=== PATIENT | male | born 1995 | race Caucasian/White ===

== ENCOUNTER 2017-02-12 23:08 | Emergency (ER) | payer OTHER ==
--- NOTE | ~2017-02-12 | CR20 ---
[facility]. [facility] A Service of [facility] & [facility] RADIOLOGY TEXT RESULTS PATIENT: GEMMA SEBASTIAN LOCATION: SED : [birth year] UNIT #: [id number] AGE: [address]: FELISHA TELLO SEX: M ORDER DR: [id number] [place] [address] [id number] E MR#: [id number] Acc #: [id number] NAME: GEMMA SEBASTIAN. : 1995 SEX: M STUDY DATE/TIME: 02/13/2017 1:20 UNIT: SED ROOM: STUDY DESCRIPTION: CR Ankle Min 3 Views Lt Attending Physician: Felisha Tello Aprn Ordering Physician: Felisha Tello Aprn Primary Care Physician: Maru Terry M.D. MEDICAL IMAGING REPORT This report is preliminary unless electronic signature is present. EXAM Left ankle INDICATIONS Left ankle pain after stepping in hole at work yesterday. FINDINGS AP, lateral, and oblique projections of the ankle show satisfactory integrity of the joint mortise with a smooth articular surface. There is no identifiable fracture, dislocation, or radiopaque foreign body. IMPRESSION Normal ankle. Dictated by... Azeem Lopez M.D. THIS IS AN ELECTRONICALLY VERIFIED REPORT Azeem Lopez M.D. at 02/13/2017 3:37 AM FEL/marita TD: 02/13/2017 03:11 JOB #: [id number] MEDICAL IMAGING REPORT Page 1 of 1
--- NOTE | ~2017-02-12 | CR126 ---
[facility]. [facility] A Service of [facility] & [facility] RADIOLOGY TEXT RESULTS PATIENT: GEMMA SEBASTIAN LOCATION: SED : [birth year] UNIT #: [id number] AGE: [address]: FELISHA TELLO SEX: M ORDER DR: [id number] [place] [address] [id number] E MR#: [id number] Acc #: [id number] NAME: GEMMA SEBASTIAN. : 1995 SEX: M STUDY DATE/TIME: 02/13/2017 1:20 UNIT: SED ROOM: STUDY DESCRIPTION: CR Foot Complete Min 3 View Lt Attending Physician: Felisha Tello Aprn Ordering Physician: Felisha Tello Aprn Primary Care Physician: Maru Terry M.D. MEDICAL IMAGING REPORT This report is preliminary unless electronic signature is present. EXAM Left foot INDICATION Left foot pain after stepping in a hole at work. This happened yesterday. FINDINGS The tarsal, metatarsal, and phalangeal elements are all anatomically normal in position and alignment. There are no articular defects. No fractures or radiopaque foreign bodies in the soft tissues are apparent. IMPRESSION Normal foot. Dictated by... Azeem Lopez M.D. THIS IS AN ELECTRONICALLY VERIFIED REPORT Azeem Lopez M.D. at 02/13/2017 3:37 AM SUNI/saul TD: 02/13/2017 03:10 JOB #: [id number] MEDICAL IMAGING REPORT Page 1 of 1
[~2017-02-12 23:08] MED LIST: BROMFED DM COU118 ML PO; FLEXERIL10 MG PO
[2017-02-12] MEDS ORDERED: NO MEDICATIONS (23:56)
== END 2017-02-13 02:05 | disposition home or self-care (01) ==
LOC: SED 23:08
DX: S93.402A Sprain of unspecified ligament of left ankle, initial encounter (principal); W01.0XXA Fall on same level from slipping, tripping and stumbling without subsequent striking against object, initial encounter; Y92.69 Other specified industrial and construction area as the place of occurrence of the external cause; Y99.0 Civilian activity done for income or pay
CPT/HCPCS: 29540; 73610; 73630; 99283

== ENCOUNTER 2017-02-14 03:43 | Emergency (ER) | payer OTHER ==
[~2017-02-14 03:43] MED LIST changes: +NO MEDICATIONS
== END 2017-02-14 04:19 | disposition home or self-care (01) ==
LOC: SED 03:43
DX: S93.402A Sprain of unspecified ligament of left ankle, initial encounter (principal); X50.1XXA Overexertion from prolonged static or awkward postures, initial encounter; Y93.9 Activity, unspecified
CPT/HCPCS: 99283